=== PATIENT | female | born 1945 | race Caucasian/White ===

== ENCOUNTER 2020-10-18 08:25 | Observation (INO) | payer MEDICARE ==
[2020-10-18 09:06] LABS: #Eosinphils 0.4 10x3/uL (0.0-0.5); #Monocytes 0.7 10x3/uL (0.0-1.1); #Neutrophils 4.2 10x3/uL (1.5-8.4); %Basophils 0.6 % (0.0-2.0); %Eosinophils 5.2 % (0.0-6.0); %Lymphocytes 21.7 % (18.0-47.0); %Neutrophils 62.2 % (40.0-75.0); Hemoglobin 13.8 g/dL (12.0-15.5); Mean Corpuscular HGB CONC 32.5 g/dL (32.0-36.0); Mean Corpuscular Hemoglobin 29.4 pg (27.0-33.0); Mean Corpuscular Volume 90.4 fl (81.6-98.3); Platelet Count 252 10x3/uL (150-450); RBC Distribution Width 12.9 % (11.5-14.5); Red Blood Cell (RBC) Count 4.69 10x6/uL (3.90-5.03); White Blood Cell (WBC) Count 6.8 10x3/uL (3.5-10.5)
[2020-10-18 09:21] LABS: ALT (SGPT) 23 U/L (8-55); AST (SGOT) 25 U/L (5-34); Albumin 4.3 g/dL (3.4-4.8); Alkaline Phosphatase 114 U/L (40-110); Anion Gap 14 mmol/L (10-20); BUN (Urea Nitrogen) 20 mg/dL (9.8-20.1); Bilirubin, Total 0.5 mg/dL (0.2-1.2); Calc. Creatinine Clearance 0 mL/min (70-130); Calcium 9.8 mg/dL (7.8-10.44); Carbon Dioxide 27 mmol/L (23-31); Chloride 104 mmol/L (98-107); Globulin 2.8 g/dL (2.4-3.5); Glucose 140 mg/dL (83-110); Potassium 3.8 mmol/L (3.5-5.1); Protein, Total 7.1 g/dL (5.8-8.1); Sodium 141 mmol/L (136-145)
[2020-10-18] MEDS ORDERED: Diltiazem 125 MG/25 ML ONE (10:51)
[2020-10-18] MEDS ORDERED: Ondansetron ODT 4 MG TAB PO PRN (11:20)
[2020-10-18] MEDS ORDERED: Acetaminophen 325 MG TAB PO PRN (11:20)
[2020-10-18] MEDS ORDERED: Diltiazem 125 MG in Sodium Chloride 0.9% 100 ML IVPB SCH (11:30)
[2020-10-18 12:58] LABS: Troponin I Less than 0.010 ng/mL (< 0.028)
[2020-10-18 15:03] LABS: Troponin I Less than 0.010 ng/mL (< 0.028)
[2020-10-18] MEDS ORDERED: Magnesium 2 GM/50 ML BAG (IN WATER) ONE (15:15)
[2020-10-18 17:53] LABS: SARS-CoV-2 NAA Rapid Test Not Detected (NotDetected)
[2020-10-18 19:48] VITALS: BMI 25.7
[2020-10-18] MEDS: Famotidine 20 MG TAB PO SCH (20:36)
[2020-10-18] MEDS: Metoprolol Tartrate 50 MG TAB PO SCH (20:37)
[2020-10-18] MEDS ORDERED: Calcium Carbonate 600 MG + Vit D TAB PO SCH (21:00)
[2020-10-18] MEDS ORDERED: Atorvastatin Calcium 40 MG TAB PO SCH (21:00)
[2020-10-18] MEDS ORDERED: Budesonide 0.5 MG/2 ML NEB NEB SCH (21:30)
[2020-10-18] MEDS ORDERED: Guaifenesin DM 100-10/5 ML UDCUP PO PRN (21:31)
[2020-10-18] MEDS ORDERED: Budesonide 0.5 MG/2 ML NEB ONE (21:34)
[2020-10-18] MEDS ORDERED: Albuterol Sulfate 2.5 mg/3 ml Neb ONE (21:34)
[2020-10-18] MEDS: Albuterol Sulfate 2.5 mg/3 ml Neb NEB PRN (22:06)
[2020-10-19 04:29] LABS: #Eosinphils 0.4 10x3/uL (0.0-0.5); #Monocytes 0.6 10x3/uL (0.0-1.1); #Neutrophils 4.8 10x3/uL (1.5-8.4); %Basophils 0.3 % (0.0-2.0); %Eosinophils 5.8 % (0.0-6.0); %Lymphocytes 21.7 % (18.0-47.0); %Monocytes 7.9 % (0.0-10.0); %Neutrophils 63.9 % (40.0-75.0); Hemoglobin 13.4 g/dL (12.0-15.5); Mean Corpuscular HGB CONC 33.3 g/dL (32.0-36.0); Mean Corpuscular Hemoglobin 29.8 pg (27.0-33.0); Mean Corpuscular Volume 89.3 fl (81.6-98.3); Platelet Count 267 10x3/uL (150-450); White Blood Cell (WBC) Count 7.5 10x3/uL (3.5-10.5)
[2020-10-19 04:40] LABS: Anion Gap 16 mmol/L (10-20); BUN (Urea Nitrogen) 13 mg/dL (9.8-20.1); Calc. Creatinine Clearance 70 mL/min (70-130); Calcium 9.3 mg/dL (7.8-10.44); Carbon Dioxide 23 mmol/L (23-31); Chloride 106 mmol/L (98-107); Glucose 111 mg/dL (83-110); Sodium 141 mmol/L (136-145)
[2020-10-19] MEDS ORDERED: Mometasone/Formoterol 60 PUFF AER INH SCH (06:30)
[2020-10-19 08:08] VITALS: TEMP 97.9
[2020-10-19] MEDS: Metoprolol Tartrate 50 MG TAB PO SCH (08:09)
[2020-10-19] MEDS: Albuterol Sulfate 2.5 mg/3 ml Neb NEB PRN (08:11)
[2020-10-19] MEDS: Famotidine 20 MG TAB PO SCH (08:17)
[2020-10-19] MEDS ORDERED: Ferrous Gluconate 324 MG TAB PO SCH (09:00)
[2020-10-19] MEDS ORDERED: Aspirin 81 mg Enteric Coated Tablet PO SCH (09:00)
[2020-10-19] MEDS ORDERED: Enoxaparin Sodium 40 MG/0.4 ML SYRINGE SC SCH (09:00)
[2020-10-19] MEDS ORDERED: Clopidogrel Bisulfate 75 MG TAB PO SCH (09:00)
[2020-10-19 09:02] VITALS: BP 133/77
== END 2020-10-19 11:38 | disposition home or self-care (01) ==
LOC: CSHERS 08:25 → CSHTELE 18:17
PROVIDERS: ADMIT Family Medicine; ATTEND Internal Medicine
DX: R00.0 Tachycardia, unspecified (principal); I25.118 Atherosclerotic heart disease of native coronary artery with other forms of angina pectoris; I10 Essential (primary) hypertension; Z79.899 Other long term (current) drug therapy; Z79.82 Long term (current) use of aspirin; Z95.5 Presence of coronary angioplasty implant and graft; E78.2 Mixed hyperlipidemia; Z20.822 Contact with and (suspected) exposure to COVID-19
CPT/HCPCS: 71045; 80048; 80053; 83735; 83880; 84484 ×2; 85025 ×2; 85379; 93005; 94640 ×3; 96365; 96366 ×3; 96368; 96372; 96376; 97139; 99285; G0378 ×3; U0002; 36415; 93010; J1650; J3475; J7611; J7626

== ENCOUNTER 2021-10-10 18:55 | Inpatient (IN) | payer MEDICARE ==
[2021-10-10 19:57] LABS: #Eosinphils 0.4 10x3/uL (0.0-0.5); #Monocytes 0.7 10x3/uL (0.0-1.1); #Neutrophils 6.6 10x3/uL (1.5-8.4); %Basophils 0.4 % (0.0-2.0); %Eosinophils 4.4 % (0.0-6.0); %Lymphocytes 13.5 % (18.0-47.0); %Monocytes 8.2 % (0.0-10.0); %Neutrophils 73.3 % (40.0-75.0); Hemoglobin 13.4 g/dL (12.0-15.5); Mean Corpuscular HGB CONC 33.6 g/dL (32.0-36.0); Mean Corpuscular Hemoglobin 29.9 pg (27.0-33.0); Mean Corpuscular Volume 89.1 fl (81.6-98.3); Mean Platelet Volume 9.4 fl (7.4-10.4); Platelet Count 233 10x3/uL (150-450); RBC Distribution Width 12.7 % (11.5-14.5); Red Blood Cell (RBC) Count 4.48 10x6/uL (3.90-5.03)
[2021-10-10 20:03] LABS: ALT (SGPT) 19 U/L (8-55); AST (SGOT) 23 U/L (5-34); Albumin 4.3 g/dL (3.4-4.8); Alkaline Phosphatase 121 U/L (40-110); Anion Gap 13 mmol/L (10-20); BUN (Urea Nitrogen) 16 mg/dL (9.8-20.1); Bilirubin, Total 0.6 mg/dL (0.2-1.2); Calc. Creatinine Clearance 0 mL/min (70-130); Calcium 9.4 mg/dL (7.8-10.44); Carbon Dioxide 27 mmol/L (23-31); Chloride 103 mmol/L (98-107); Globulin 2.1 g/dL (2.4-3.5); Glucose 254 mg/dL (83-110); Potassium 3.8 mmol/L (3.5-5.1); Protein, Total 6.4 g/dL (5.8-8.1); Sodium 139 mmol/L (136-145)
[2021-10-10 20:29] LABS: Magnesium 2.2 mg/dL (1.6-2.6)
[2021-10-10] MEDS ORDERED: Diltiazem 125 MG/25 ML ONE (23:36)
[2021-10-11] MEDS ORDERED: Acetaminophen 325 MG TAB PO PRN (00:32)
[2021-10-11] MEDS ORDERED: Dextrose 5% in Water 1,000 ML IV PRN (01:04)
[2021-10-11] MEDS ORDERED: HumaLOG 300 UNITS/3 ML VIAL SC PRN (01:04)
[2021-10-11] MEDS ORDERED: Dextrose 50% Abboject 50 ML SYRINGE SLOW IVP PRN (01:04)
[2021-10-11 02:40] VITALS: BMI 23.8
[2021-10-11] MEDS ORDERED: Diltiazem 125 MG in Sodium Chloride 0.9% 100 ML IVPB SCH (03:00)
[2021-10-11 04:03] LABS: SARS-CoV-2 NAA Rapid Test Not Detected (NotDetected)
[2021-10-11 05:10] LABS: #Eosinphils 0.4 10x3/uL (0.0-0.5); #Monocytes 0.8 10x3/uL (0.0-1.1); #Neutrophils 4.5 10x3/uL (1.5-8.4); %Basophils 0.6 % (0.0-2.0); %Eosinophils 5.2 % (0.0-6.0); %Lymphocytes 18.3 % (18.0-47.0); %Monocytes 11.5 % (0.0-10.0); %Neutrophils 64.1 % (40.0-75.0); Hemoglobin 11.7 g/dL (12.0-15.5); Mean Corpuscular HGB CONC 33.3 g/dL (32.0-36.0); Mean Corpuscular Hemoglobin 30.3 pg (27.0-33.0); Mean Corpuscular Volume 90.9 fl (81.6-98.3); Mean Platelet Volume 9.4 fl (7.4-10.4); Platelet Count 202 10x3/uL (150-450); RBC Distribution Width 13.1 % (11.5-14.5); Red Blood Cell (RBC) Count 3.86 10x6/uL (3.90-5.03); White Blood Cell (WBC) Count 7.1 10x3/uL (3.5-10.5)
[2021-10-11 05:34] LABS: Anion Gap 12 mmol/L (10-20); BUN (Urea Nitrogen) 14 mg/dL (9.8-20.1); Calc. Creatinine Clearance 59 mL/min (70-130); Calcium 9.1 mg/dL (7.8-10.44); Carbon Dioxide 26 mmol/L (23-31); Cardiac Risk 2.8 (Less than 4.5); Chloride 108 mmol/L (98-107); Cholesterol 134 mg/dl (< 200 Desired); Glucose 146 mg/dL (83-110); HDL Cholesterol 48 mg/dL (>60 Neg Risk); LDL Cholesterol, Calculated 77 mg/dL; Potassium 4.2 mmol/L (3.5-5.1); Sodium 142 mmol/L (136-145); Triglycerides 47 mg/dL (Less than 150)
[2021-10-11 05:42] LABS: Troponin I Less than 0.010 ng/mL (< 0.028)
[2021-10-11] MEDS ORDERED: Metoprolol Tartrate 25 MG TAB PO SCH (09:00)
[2021-10-11] MEDS: Ferrous Gluconate 324 MG TAB PO SCH (10:00)
[2021-10-11] MEDS: Aspirin 81 mg Enteric Coated Tablet PO SCH (10:00)
[2021-10-11] MEDS: Multivit, Therapeutic 1 TAB PO SCH (10:00)
[2021-10-11] MEDS: Clopidogrel Bisulfate 75 MG TAB PO SCH (10:00)
[2021-10-11] MEDS: Enoxaparin Sodium 40 MG/0.4 ML SYRINGE SC SCH (10:00)
[2021-10-11] MEDS: Mometasone/Formoterol 60 PUFF AER INH SCH ×2 (10:06→19:45)
[2021-10-11 12:34] LABS: Hemoglobin A1c 5.5 % (4.0-6.0)
[2021-10-11] MEDS: Dronedarone HCl 400 MG TAB PO SCH (17:23)
[2021-10-11] MEDS: Metoprolol Tartrate 50 MG TAB PO SCH (20:38)
[2021-10-11] MEDS ORDERED: Non-Formulary Medication 1 EACH (Tiotropium Bromide 4 GM Inhaler) NEB SCH (21:00)
[2021-10-11] MEDS ORDERED: Atorvastatin Calcium 40 MG TAB PO SCH (21:00)
[2021-10-11] MEDS ORDERED: Calcium Carbonate 600 MG + Vit D TAB PO SCH (21:00)
[2021-10-12 05:10] LABS: Troponin I Less than 0.010 ng/mL (< 0.028)
[2021-10-12] MEDS: Enoxaparin Sodium 40 MG/0.4 ML SYRINGE SC SCH (09:12)
[2021-10-12] MEDS: Multivit, Therapeutic 1 TAB PO SCH (09:13)
[2021-10-12] MEDS: Aspirin 81 mg Enteric Coated Tablet PO SCH (09:13)
[2021-10-12] MEDS: Dronedarone HCl 400 MG TAB PO SCH (09:13)
[2021-10-12] MEDS: Clopidogrel Bisulfate 75 MG TAB PO SCH (09:13)
[2021-10-12] MEDS: Ferrous Gluconate 324 MG TAB PO SCH (09:13)
[2021-10-12] MEDS: Metoprolol Tartrate 50 MG TAB PO SCH (09:13)
[2021-10-12 12:05] VITALS: BP 129/63; TEMP 97.7
== END 2021-10-12 12:50 | disposition home or self-care (01) | DRG 310 ==
LOC: CSHERS 18:55 → CSHTELE 10-11 02:25
PROVIDERS: ADMIT Family Medicine; ATTEND Internal Medicine
DX: I47.1 Supraventricular tachycardia (principal); I48.92 Unspecified atrial flutter; I48.91 Unspecified atrial fibrillation; I25.10 Atherosclerotic heart disease of native coronary artery without angina pectoris; I10 Essential (primary) hypertension; E78.5 Hyperlipidemia, unspecified; J44.9 Chronic obstructive pulmonary disease, unspecified; R73.9 Hyperglycemia, unspecified; Z66 Do not resuscitate; Z20.822 Contact with and (suspected) exposure to COVID-19; Z79.51 Long term (current) use of inhaled steroids; Z79.82 Long term (current) use of aspirin; Z79.899 Other long term (current) drug therapy; Z95.5 Presence of coronary angioplasty implant and graft; Z90.710 Acquired absence of both cervix and uterus; Z90.49 Acquired absence of other specified parts of digestive tract; Z85.828 Personal history of other malignant neoplasm of skin
CPT/HCPCS: 36415; 36416; 71045; 80048; 80053; 80061; 83036; 83735; 84443; 84484; 85025; 93005; 93010; 93306; 96365; 96366; 96376; J1650; U0002

== ENCOUNTER 2023-01-26 09:25 | Outpatient (CLI) | payer MEDICARE | END 2023-01-26 09:26 | disposition home or self-care (01) | LOC: CSHMAMMO 09:25 | PROVIDERS: ATTEND Family Medicine | DX: Z13.820 Encounter for screening for osteoporosis (principal); M81.0 Age-related osteoporosis without current pathological fracture; M85.89 Other specified disorders of bone density and structure, multiple sites | CPT/HCPCS: 77080 ==